=== PATIENT | female | born 1995 | race Caucasian/White ===

== ENCOUNTER 2020-10-02 13:05 | Emergency (ER) | payer SELFPAY ==
[2020-10-02 15:04] LABS: HEMOGLOBIN 14.5 gm/dl (12.3-15.3); RED BLOOD COUNT 4.88 M/UL (4.00-5.10); WHITE BLOOD COUNT 6.5 K/UL (4.5-11.0)
[2020-10-02 16:12] LABS: BUN/CREATININE RATIO 13 (0-10)
[2020-10-02] MEDS ORDERED: ZOFRAN4 MG PO (17:47)
[2020-10-02] MEDS ORDERED: OMNICEF 300 MG300 MG PO (17:47)
== END 2020-10-02 19:00 | disposition home or self-care (01) ==
LOC: ER1 13:05
PROVIDERS: Physician Assistant Medical
DX: R10.11 Right upper quadrant pain (principal); R19.7 Diarrhea, unspecified; R11.0 Nausea
CPT/HCPCS: 80053; 81001; 83690; 84703; 85025; 87086; 99284